=== PATIENT | female | born 1995 | race African-American/Black ===

== ENCOUNTER 2019-04-23 16:10 | Inpatient (IN) | payer MEDICAID ==
--- NOTE | 2019-04-23 16:35 | ED ---
Psychiatric Complaint - HPI Summary HPI Summary: This pt is a 23 y/o female presenting to [facility] for a mental health evaluation. Friend reports she was asked by her niece (who is the pt's best friend) to take the pt home. Friend states the pt was not speaking coherently but had to go to a meeting before taking the pt home. Friend notes she received 4 calls about the patient threatening to hurt herself and others. Friend reports pt has been having auditory and visual hallucinations and pt also stated to her she wanted to kill herself and do the same to other people. Per friend, pt has hx of drug induced auditory and visual hallucinations.The friend then brought the pt to the ED at 10:30 today but pt refused to come into the ED and drove the pt around. Friend drove the pt to convenient care and sat there for about 1 hour as pt still didn't want to go to the hospital for an evaluation. Finally the police arrived and spoke to the patient and convinced pt to come to the ED. Pt currently denies any SI or HI. She has hx of depression and anxiety, but not on any medications. Pt is supposed to be taking Prozac. Denies alcohol or tobacco use. Pt has hx of drug use but not anymore. - History Of Current Complaint Chief Complaint: EDMentalHealth Time Seen by Provider: 04/23/19 16:18 Hx Obtained From: Patient, Family/Restrike Hammer Operator - Friend Onset/Duration: Sudden Onset, Still Present Timing: Constant Severity Currently: Moderate Character: Manic, Depressed Aggravating Factor(s): Other - unknown Alleviating Factor(s): Other - unknown Associated Signs And Symptoms: Positive: Hallucinating Has Suicidal: Denies: Thoughts, With A Plan Has Homicidal: Denies: Thoughts, With A Plan - Allergies/Home Medications Allergies/Adverse Reactions: Allergies Allergy/AdvReac Type Severity Reaction Status Date / Time No Known Allergies Allergy Verified 04/23/19 18:08 Home Medications: Home Medications NK [No Home Medications Reported] 04/23/19 [History Confirmed 04/23/19] PMH/Surg Hx/FS Hx/Imm Hx Endocrine/Hematology History: Denies: Hx Diabetes Psychiatric History: Reports: Hx Anxiety, Hx Depression Infectious Disease History: No Infectious Disease History: Denies: Traveled Outside the [place] in Last 30 Days - Family History Known Family History: Negative: Cardiac Disease, Hypertension, Diabetes - Social History Alcohol Use: None Hx Substance Use: Yes Substance Use Comment - Amount & Last Used: hx of drug use, not anymore Smoking Status (MU): Never Smoked Tobacco Review of Systems Negative: Fever Psychological: Other - POSITIVE: auditory and visual hallucinations, SI gestures Positive: Other - NEGATIVE: SI or HI All Other Systems Reviewed And Are Negative: Yes Physical Exam - Summary Physical Exam Summary: VITAL SIGNS: Reviewed. GENERAL: Patient is a well-developed and nourished female. Patient is not in any acute respiratory distress. HEAD AND FACE: No signs of trauma. No ecchymosis, hematomas or skull depressions. No sinus tenderness. EYES: PERRLA, EOMI x 2, No injected conjunctiva, no nystagmus. EARS: Hearing grossly intact. Ear canals and tympanic membranes are within normal limits. MOUTH: Oropharynx within normal limits. NECK: Supple, trachea is midline, no adenopathy, no JVD, no carotid bruit, no c- spine tenderness, neck with full ROM. CHEST: Symmetric, no tenderness at palpation LUNGS: Clear to auscultation bilaterally. No wheezing or crackles. CVS: Regular rate and rhythm, S1 and S2 present, no murmurs or gallops appreciated. ABDOMEN: Soft, non-tender. No signs of distention. No rebound no guarding, and no masses palpated. Bowel sounds are normal. EXTREMITIES: FROM in all major joints, no edema, no cyanosis or clubbing. NEURO: Alert and oriented x 3. No acute neurological deficits. Speech is normal and follows commands. SKIN: Dry and warm PSYCH: Pt denies SI or HI. Pt is acting appropriately now. Triage Information Reviewed: Yes Vital Signs On Initial Exam: Initial Vitals Temp Pulse Resp BP Pulse Ox 98.1 F 78 18 134/112 98 04/23/19 16:13 04/23/19 16:13 04/23/19 16:13 04/23/19 16:13 04/23/19 16:13 Vital Signs Reviewed: Yes Procedures - Sedation Patient Received Moderate/Deep Sedation with Procedure: No Diagnostics - Vital Signs Vital Signs Temp Pulse Resp BP Pulse Ox 04/23/19 16:13 98.1 F 78 18 134/112 98 - Laboratory Result Diagrams: 04/23/19 17:16 04/23/19 17:16 Lab Statement: Any lab studies that have been ordered have been reviewed, and results considered in the medical decision making process. Course/Dx - Course Assessment/Plan: Blood work results without significant abnormality except for WBC of 12.1, toxicology positive for amphetamines. Pt was medically cleared. She is waiting for a MHE. Pt is alert and oriented x3, and hemodynamically stable. Pt had a mental health evaluation and her case was reviewed by Dr. Ross, psychiatrist. Dr. Ross will admit the pt on an involuntary status with dx polysubstance use disorder. - Differential Dx/Clinical Impression Provider Diagnosis: Polysubstance abuse Discharge ED - Sign-Out/Discharge Documenting (check all that apply): Patient Departure - Admit to [facility] - Discharge Plan Condition: Stable Disposition: PSYCHIATRIC FACILITY-[facility] Referrals: No Primary Care Phys,NOPCP [Primary Care Provider] - - Billing Disposition and Condition Condition: STABLE Disposition: Psychiatric Facility [facility] - Attestation Statements Document Initiated by Scribe: Yes Documenting Scribe: Angelina Thao Provider For Whom Scribe is Documenting (Include Credential): Cristian Broussard MD Scribe Attestation: Angelina Taveras, scribed for Cristian Broussard MD on 04/23/19 at 2127. Scribe Documentation Reviewed: Yes Provider Attestation: The documentation as recorded by the Angelina alexandra accurately reflects the service I personally performed and the decisions made by , Cristian Broussard MD Status of Scribe Document: Viewed
[2019-04-23 17:23] LABS: ABS Basophils 0.1 10^3/ul (0-0.2); ABS Eosinophils 0.1 10^3/ul (0-0.6); ABS Lymphocytes 2.8 10^3/ul (1.0-4.8); ABS Monocytes 0.9 10^3/ul (0-0.8); ABS Neutrophils 8.2 10^3/ul (1.5-7.7); Eosinophil % 0.5 %; Hematocrit 46 % (35-47); Hemoglobin 15.8 g/dL (12.0-16.0); Lymphocyte % 23.4 %; Mean Corpuscular HGB Conc 34 g/dL (31-36); Mean Corpuscular Hemoglobin 30 pg (27-31); Mean Corpuscular Volume 87 fL (80-97); Mean Platelet Volume 7.1 fL (7.4-10.4); Platelet Count 434 10^3/uL (150-450); Red Cell Distribution Width 13 % (10-15); White Blood Count 12.1 10^3/uL (3.5-10.8)
[2019-04-23 17:39] LABS: ALT 11 U/L (7-52); AST 12 U/L (13-39); Albumin 5.3 g/dL (3.2-5.2); Albumin/Globulin Ratio 1.4 (1-3); Alkaline Phosphatase 73 U/L (34-104); Anion Gap 12 mmol/L (2-11); BUN/Creatinine Ratio 15.4 (8-20); Blood Urea Nitrogen 14 mg/dL (6-24); CO2 Carbon Dioxide 23 mmol/L (22-32); Calcium 10.9 mg/dL (8.6-10.3); Chloride 102 mmol/L (101-111); EGFR African American 93.5 (>60); EGFR Non-African American 77.3 (>60); Globulin 3.7 g/dL (2-4); Glucose 85 mg/dL (70-100); Potassium 3.9 mmol/L (3.5-5.0); Sodium 137 mmol/L (135-145)
[2019-04-23 17:40] LABS: Acetaminophen < 15 mcg/mL; Alcohol < 10 mg/dL (<10); Salicylate < 2.50 mg/dL (<30)
[2019-04-23 18:08] LABS: TSH (Thyroid Stimulating Horm) 1.46 mcIU/mL (0.34-5.60)
[2019-04-23 19:22] LABS: Urine Appearance Cloudy; Urine Bilirubin Negative (Negative); Urine Blood 1+ (Negative); Urine Color Yellow; Urine Glucose Negative (Negative); Urine Ketones 1+ (Negative); Urine Nitrite Negative (Negative); Urine Protein 1+(30 mg/dL) (Negative); Urine Specific Gravity 1.027 (1.010-1.030); Urine Urobilinogen Negative (Negative)
[2019-04-23 19:25] LABS: Urine Bacteria Absent (Absent); Urine Red Blood Cell 1+(3-5/hpf) (Absent); Urine Squamous Epithelial Cell Present (Absent); Urine White Blood Cell 1+(6-10/hpf) (Absent)
[2019-04-23 19:36] LABS: Urine Benzodiazepine Screen None Detected (None Detect); Urine Opiates Screen None Detected (None Detect)
[2019-04-23] MEDS ORDERED: Al Hydrox/Mg Hydrox/Simet LIQ* 30 ML UDC PO PRN (21:32)
[2019-04-23] MEDS ORDERED: Acetaminophen TAB* 325 MG PO PRN (21:32)
[2019-04-24] MEDS ORDERED: Influenza VAC *QUAD* 2019-20* 0.5 ML SYRINGE IM ONE (09:00)
[2019-04-24] MEDS: Vitamin THERAPEUTIC TAB PO SCH (12:35)
[2019-04-24] MEDS ORDERED: risperiDONE TAB* 1 MG PO PRN (14:56)
--- NOTE | 2019-04-24 16:59 | HP ---
HISTORY AND PHYSICAL: DATE OF ADMISSION: 04/23/19 PROVIDER: Olga Bowman NP, Psychiatry. SUPERVISING PHYSICIAN: Gadiel Phipps MD * (DICTATED BY OLGA BOWMAN NP) JUSTIFICATION FOR ADMISSION: The patient is in need of 24-hour supervision and care secondary to suicidal ideation, homicidal ideation, and gross disorganization. CHIEF COMPLAINT: "I don't know why I'm here." HISTORY OF PRESENT ILLNESS: The patient is a 23-year-old single, mixed raced female with a history of drug abuse, who arrives, brought in by her friend's aunt by a car and is here on a 9.39 status following being in her friend's aunt' s car and stating that she is having suicidal and homicidal thoughts as well as experiencing auditory and visual hallucinations. When I speak with Marisol, she denies any knowledge of ever saying she was suicidal or homicidal. In fact, she deflects any suggestion that she has any psychiatric problem at all, at least initially. The report from her evaluation , there is collateral that states that she has made suicidal comments as recently as yesterday, that she engages in drug use and does not have stable housing. Marisol actually says that she lives with her mom. She has a daughter who I believe is 3 who does not live with her mom, who lives with the daughter's father's parents. At any rate, the patient reports auditory hallucination. At times when she is in the emergency department, she is reported to be speaking to people who are not there. She states she has not slept in an entire day. She reports a history of feeling suicidal in the past. The patient's mother says that Marisol's mind is never safe and she feels like admission will be best. Marisol appears to be intoxicated by some substance when she is speaking to us. She is non-committal about most of her answers, appears suspicious, is hostile at times, and makes inconsistent eye contact. She is experiencing symptoms of sleep disruption, lack of interest. She has less energy than usual due to her lack of sleep. She states that she can never concentrate. She is not experiencing suicidal ideation at this time, although she has in the past. The friend who brought her in reports that she was asked to take the patient home. This person states that the patient was not coherent and the friend who took her to the hospital states she received 4 calls about the patient threatening to hurt herself and others. The friend reports that Marisol has been having auditory and visual hallucinations and that she wanted to kill herself and kill other people. The friend indicated she has a history of drug- induced auditory and visual hallucinations. The friend brought the patient to the ED at 10:30, but the patient refused to come into the ED and the friend drove the patient around. Eventually, they went to [facility] and sat there for an hour, but the patient still did not want to go to the hospital for an evaluation. Finally, the police arrived and spoke to the patient and convinced the patient to come to the emergency department. It states in this that the patient is supposed to be taking Prozac. Also it states that the patient denies drug use, which is not true. PAST PSYCHIATRIC HISTORY: She was admitted to [facility] for 10 days for depression and anxiety at some point in the recent past. She states she has never attempted suicide, but she has cut herself. She says she has not done that recently. She states she hears voices when she is on drugs and she states she also gets paranoia. She states she took medications for schizophrenia that helped, but she cannot remember what those medications were. TRAUMA HISTORY: Denied. SUBSTANCE ABUSE HISTORY: She does not use nicotine. She states she uses alcohol rarely. She does use methamphetamine on a daily basis, although she states for the past few days she has not used it. Her drug screen was positive for amphetamines. She has been in treatment in [place], [place]. She is unable to come up with the name of her therapist or the names of program. PAST MEDICAL HISTORY: She apparently has bacterial vaginosis and that is from her history. FAMILY HISTORY: Cannot be elicited at this time. SOCIAL HISTORY: She is educated to the 10th grade. She currently lives in [place], [place] and had a therapist in [place]. She is the mother of 1 child. She is not employed at this time. She has not been in the . She has no legal problems, although she does have a family preservation caseworker for her daughter, Saranya, and this is in a preventive capacity. REVIEW OF SYSTEMS: The patient reports feeling fatigued. She denies shortness of breath, heat or cold intolerance, chest pain or abdominal pain. She denies neurological symptoms. She denies fevers or changes in weight. PHYSICAL EXAMINATION GENERAL: The patient is a well-developed and nourished female. She is not in any acute respiratory distress. VITAL SIGNS: On 04/23/19 at 2148, temperature was 97.6, pulse 100, respiratory rate 18, O2 sat on room air is 100%, blood pressure 126/89. HEENT: Head and face: No signs of trauma. No ecchymosis, hematomas, or skull depressions. No sinus tenderness. Eyes: PERRLA. EOMI x2. No injected conjunctivae. No nystagmus. Ears: Hearing grossly intact. Ear canals and tympanic membranes are within normal limits. Mouth: Oropharynx within normal limits. NECK: Supple. Trachea is midline. No adenopathy. No JVD. No carotid bruits. No C-spine tenderness. Neck with full range of motion. LUNGS: Clear to auscultation bilaterally. No wheezing or crackles. CHEST: Symmetric. No tenderness to palpation. CVS: Regular rate and rhythm. S1 and S2 present. No murmurs or gallops appreciated. ABDOMEN: Soft, nontender. No signs of distention. No rebound. No guarding. No masses palpated. Bowel sounds are normal. EXTREMITIES: Full range of motion in all major joints. No edema. No cyanosis or clubbing. NEURO: Alert and oriented x4. No acute neurological deficits. Speech is normal and she follows commands. SKIN: Warm and dry. LABORATORY DATA: Most data are within healthy limits. Exceptions to normal: Her white blood cells high at 12.1, RBC is high at 5.3, MPV low at 7.1, absolute neutrophils high 8.2, absolute monocytes high 0.9, anion gap high 12, calcium high 10.9, AST low 12, total protein high 9, albumin high 5.3. Urine contains protein, ketones, blood, leukocyte esterase, white blood cells, red blood cells, and urine epithelial cells. The toxicology screen is positive for amphetamines only. MENTAL STATUS EXAMINATION: Marisol is a 5 feet 2 inches, 110-pound young woman , who is attractive with dark hair and medium brown skin. Her grooming is adequate. She sits still and picks at her pants quite frequently. Her eye contact is poor. She is not entirely cooperative. She appears at times hostile and confused, perhaps intoxicated by some substance. Her speech has a normal rate, tone, and volume, although the content is minimal. Her mood is dysthymic. She has a constricted range of affect. Her thought processes are impoverished. She does not appear to be able to think of the words that she wants or come up with complete thoughts either. She is not obviously delusional. She states she is not homicidal or suicidal at this time. She states she has no currently auditory or visual hallucinations, but she does look at her pants and look in the air as if she is looking at something that we cannot see. Her insight is fair. Her judgment is fair. She is alert and oriented x4. DIAGNOSES: 1. Methamphetamine use disorder. 2. Rule out psychotic disorder. IMPRESSION: Marisol is a 23-year-old young woman, who is currently diagnosed with methamphetamine use disorder, but is displaying symptoms of psychosis and appears to be intoxicated at this time. PLAN: The patient is admitted to the adult behavioral health unit and placed on q.15-minute checks for her own safety. She is encouraged to participate in supportive milieu, individual and group therapies. Estimated length of stay is 5 to 7 days. We may obtain an MMPI for diagnostic clarification. We will titrate medications to efficacy and monitor for mood and thought content. Discharge planning will include family involvement and outpatient providers. OLGA BOWMAN NP [id number]/[facility] #: [id number] GRACY
[2019-04-25] MEDS: Vitamin THERAPEUTIC TAB PO SCH (09:48)
--- NOTE | 2019-04-25 11:40 | PN ---
Subjective - Subjective Date of Service: 04/25/19 Service Type: 93599 Hosp care 15 min low complexity Subjective: REports she does not have hallucinations currently, only hears her own thoughts , not AH from outside her head, but her own internal voice. Does report having had hallucinations with use of methamphetamine. Started using methamphetamine when a friend offered her what the friend reported was Dior, but it turned out to be methamphetamine. Denies ever having been suicidal or homicidal in course of events leading to this admission. Reports that if she tells the police she is not suicidal they cannot take her to the hospital, but her friend Kate lied to police and the hospital saying Marisol was suicidal and homicidal. Clarifies that her daughter is age 3. Reports sleeping fine. Had planned to get treatment to help abstain from methamphetamine at [facility] or something sounding like that. Objective - General Observations Appearance: Neat, Well Groomed Appears Stated Age: Yes Stature: WNL Posture: WNL Eye Contact: Average Behavior/Activity: WNL - Interaction Observations Attitude Towards Examiner: Cooperative, Mistrustful Stated Mood: Euthymic - "content" Affect: Full Speech Pattern/Tone: Clear, Appropriate, Normal Volume Thought Process: Coherent, Goal Directed Perception: WNL Thought Content: WNL Hallucination Type: None Delusion Type: None - Cognitive Function Orientation: A&O x 4 Level of Consciousness: Awake, Alert, Appropriate Cognition: WNL Estimated Intelligence: Normal - 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 She attributes her acknowledged history of hallucinations to use of methamphetamine. Her treatment goal is abstinence from methamphetamine. Plan - Plan Treatment Plan: Name: MARISOL DIANA Birthdate: 1995 [id number] Continue to offer medication. Gather collateral to clarify situation as permitted by patient. Declines help arranging for rehab. Plans instead to get public assistance from [facility] to help with housing, and expects help from [facility] with seeking formalized care for methamphetamine abuse. At this point, feels in doubt as regards a chronic psychotic disorder diagnosis. Reports receiving care at [facility], which would likely be a good source of callateral to guide care here, or at the very least discharge planning. Continued Medication Management: Different Medication Medications: Current Medications Acetaminophen (Tylenol Tab*) 650 mg PO Q4H PRN PRN Reason: PAIN or TEMP > 101 F Al Hydrox/Mg Hydrox/Simethicone (Maalox Plus*) 30 ml PO Q4H PRN PRN Reason: INDIGESTION Multivitamins (Theragran Tab*) 1 tab PO DAILY JAKOB Last Admin: 04/25/19 09:48 Dose: 1 tab Risperidone (Risperdal*) 1 mg PO Q6H PRN PRN Reason: AGITATION/ANXIETY/INSOMNIA - Discharge Plan Discharge Plan: Outpatient Follow Up Outpatient Program: [facility] and rehab elsewhere
[2019-04-26] MEDS: Vitamin THERAPEUTIC TAB PO SCH (08:31)
[2019-04-26 09:02] LABS: HDL Cholesterol 34.1 mg/dL
--- NOTE | 2019-04-26 13:14 | PN ---
Progress Note - Progress Note Date of Service: 04/26/19 Note: Marisol reports only experience of psychosis as AH and PI has been while on methampetamine. Reports main concern now is irritable/depressed mood, and would like to try an antidepressant medication. We reviewed SSRI and other options and reviewed potential side effects. She chose a trial of sertraline starting at a low dose of 25 mg.
[2019-04-27] MEDS: Vitamin THERAPEUTIC TAB PO SCH (08:46)
[2019-04-27] MEDS ORDERED: Sertraline* 25 MG TAB PO SCH (09:00)
[2019-04-27 09:26] VITALS: BP 105/74
--- NOTE | 2019-04-27 11:19 | PN ---
BSU: Group Therapy Note - Service Type Service Type: [id number] Group Psychotherapy - Cognitive Behavioral Group Therapy ( CBT):Patient was attentive and participatory in CBT programming this morning, and remained in good behavioral control. Patient expressed positive insights regarding relevant treatment interventions and goals.
--- NOTE | 2019-04-28 12:02 | DS ---
DISCHARGE SUMMARY: DATE OF ADMISSION: 04/23/19 DATE OF DISCHARGE: 04/27/19 PROVIDER: Olga Bowman NP in Psychiatry. SUPERVISING PHYSICIAN: Dr. Gadiel Phipps.* (DICTATED BY OLGA BOWMAN NP) DIAGNOSES: 1. Methamphetamine use disorder. 2. Depressive disorder. CONDITION AT THE TIME OF DISCHARGE: Improved, psychiatrically cleared, stable. She participated in some groups and was mildly social with peers. She is agreeable and eager for discharge. She has done well here psychiatrically. She tolerated the addition of Zoloft well. She will be attending [facility]. MENTAL STATUS EXAM: At the time of discharge, Marisol is calm, cooperative, and makes good eye contact. She is alert and oriented x4. Her grooming is good. Her speech pace is normal. Her thought processes are logical. She is not psychotic or delusional. She denies AH, VH, SI, and HI. Insight and judgment are fair. She is willing to follow up and she is urged to see a therapist. DISCHARGE INSTRUCTIONS TO THE PATIENT: A. Medications: Zoloft 25 mg daily, dispensed 30. These are dispensed to [facility]. B. Diet is regular. C. Activities as tolerated. Marisol is a nonsmoker. There are no studies pending at the time of discharge. D. Followup care. She has an appointment at [facility] on 04/28/19 at 2 p.m. with Krupa Cox, psychiatrist and she has a 3 p.m. appointment with Jamshid Baxter, community case manager. E. Disposition: She is being discharged to her home where she lives with her parents. F. Substance abuse followup is declined. Treatment, referrals and medications were offered and the patient declined. HOSPITAL COURSE: Part A. Chief Complaint: "I don't know why I'm here." The patient is a 23-year-old single, mixed raced female with a history of drug abuse, who arrives, brought in by her friend's aunt by a car and is here on a 9.39 status following being in her friend's aunt's car and stating that she is having suicidal and homicidal thoughts as well as experiencing auditory and visual hallucinations. When I speak with Marisol, she denies any knowledge of ever saying that she was suicidal or homicidal. In fact, she deflects any suggestion that she has any psychiatric problem at all at least initially. The report from her evaluation is that there is collateral that states that she has made suicidal comments as recently as yesterday that she engages in drug use and she does not have stable housing. Marisol actually says that she lives with her mom. She has a daughter who I believe is 3 who does not live with her mom, who lives with the daughter's father's parents. At any rate, the patient reports auditory hallucinations. At times when she is in the emergency department, she is reported to be speaking to people who are not there. She stated she had not slept in an entire day. She reports a history of feeling suicidal in the past. The patient's mother says that Marisol's mind is never safe and she feels like admission will be best. Marisol appears to be intoxicated by some substance when she is speaking to us. She is non-committal about most of her answers, appears suspicious, is hostile at times and makes inconsistent eye contact. She is experiencing symptoms of sleep disruption and lack of interest. She has less energy than usual due to her lack of sleep. She states she can never concentrate. She is not experiencing suicidal ideation in this time, although she has in the past. The friend who brought her in reports that she was asked to take the patient home. The person states that the patient was not coherent and the friend who took her to the hospital states she received 4 calls about the patient threatening to hurt herself and others. The friend reports that Marisol has been having auditory and visual hallucinations and that she wanted to kill herself and kill other people. The friend indicated she has a history of drug- induced auditory and visual hallucinations. The friend brought the patient to the ED at 10:30, but the patient refused to come in and the friend drove the patient around. Eventually, they went to convenient care and sat there for an hour, but the patient still did not want to go to the hospital for an evaluation. Finally, the police arrived and spoke to the patient and convinced the patient to come to the emergency department. It states in the collateral that Marisol is supposed to be taking Prozac. It also states that the patient denies drug abuse, the fact that she is positive for amphetamines and she states she used cannabis today as well. Part B. Psychiatric treatment was rendered. Marisol was admitted to the adult behavioral unit and placed on 15-minute checks for safety. She did well on the unit. She went to some groups. She interacted with some peers well. She tolerated the addition of Zoloft 25 mg daily that was the only medication that was started. Prozac that what she was reported to be taking was discontinued. We did not meet with her family. She was suspicious and guarded during her discharge. She did not make eye contact with me. She avoided me in fact. Nevertheless, she is not hallucinating any longer. She is future oriented and eager to get back home. She felt a bit betrayed by her friend and her friend's aunt for bringing her here which she felt was a long way from home. Her history was not always clear. At the time of taking history, she was intoxicated and at the time of her discharge, she is sober and thus more able to indicate that she wants to go home. She is improved over admission. She is no longer hallucinating. She is not suicidal. She is not homicidal. She denies these things passionately. She states she will follow up. She was safe on all checks. OLGA BOWMAN, MADAY [id number]/CPS #: [id number] [facility]USAgus
== END 2019-04-27 11:40 | disposition home or self-care (01) | DRG 776 ==
LOC: ED 16:10 → BSU 20:42
PROVIDERS: ADMIT Psychiatry & Neurology Psychiatry; ATTEND Psychiatry & Neurology Psychiatry
DX: F15.90 Other stimulant use, unspecified, uncomplicated (principal); R45.851 Suicidal ideations; R44.0 Auditory hallucinations; F32.9 Major depressive disorder, single episode, unspecified; R45.850 Homicidal ideations; R44.1 Visual hallucinations; Z79.899 Other long term (current) drug therapy
CPT/HCPCS: 36415; 80053; 80061; 80307; 80320; 80329; 81003; 81015; 83036; 84443; 85025; 87086; 90853; 99222; 99231; 99238; 99284; A9270-GY; G0480